=== PATIENT | female | born 1970 | race Caucasian/White ===

== ENCOUNTER 2016-10-03 17:38 | Day surgery (SDC) | payer SELFPAY ==
[~2016-10-03] VITALS: Ht 170.2 cm; Wt 75.3 kg
[2016-10-03 17:45] VITALS: BP 122/77
[2016-10-03] MEDS ORDERED: LIDOCAINE 2%HCL (LOCAL ANESTH.) INJ 20ML MDV ONE ×2 (18:11→18:43)
[2016-10-03] MEDS ORDERED: IOHEXOL 350 MG/ML 100ML IJ ONE (18:11)
[2016-10-03 18:25] LABS: Basophils # (auto) 0 uL; Basophils % (auto) 0.2 % (0.0-2.0); CONDITION Y; Eosinophils # (auto) 0 uL; Eosinophils % (auto) 0.1 % (0.0-7.0); Hematocrit 39.7 % (36.0-46.0); Hemoglobin 13.1 g/dL (12.2-16.2); Lymphocytes # (auto) 1.3 uL; Lymphocytes % (auto) 8.9 % (10.0-50.0); Mean Corpuscular Hemoglobin 29.7 pg (28.0-32.0); Mean Corpuscular Hgb Conc. 33.1 g/dL (32.0-36.0); Mean Corpuscular Volume 89.6 fL (80.0-100.0); Mean Platelet Volume 8.4 fL (7.4-10.4); Monocytes # (auto) 0.8 uL; Monocytes % (auto) 5.7 % (0.0-12.0); Neutrophils # (auto) 12.5 uL; Neutrophils % (auto) 85.1 % (37.0-80.0); Platelet Count (auto) 312 10^3/uL (140-450); Red Cell Distribution Width 13.8 % (11.6-16.0); White Blood Cell 14.7 10^3/uL (4.4-10.8)
[2016-10-03] MEDS ORDERED: fentaNYL CITRATE 100 MCG/2 ML VL ONE (18:36)
[2016-10-03] MEDS ORDERED: MIDAZOLAM HCL 1MG/1ML-2 ML VIAL ONE (18:37)
[2016-10-03 18:48] LABS: Albumin 3.8 g/dL (3.4-5.0); Alkaline Phosphatase 96 U/L (45-117); Anion Gap 8 (5-15); Aspartate Aminotransferase 81 U/L (15-37); BUN/Creatinine Ratio 14.3; Bilirubin, Total 0.2 mg/dL (0.2-1.0); Blood Urea Nitrogen 12 mg/dL (7-18); Calcium 8.9 mg/dL (8.5-10.1); Carbon Dioxide 25 mmol/L (21-32); Chloride 103 mmol/L (98-107); GFR African American 93 mL/min; GFR Non-African American 77 mL/min; Glucose 105 mg/dL (74-106); Magnesium 2.2 mg/dL (1.6-2.6); Potassium 3.6 mmol/L (3.5-5.1); Sodium 136 mmol/L (136-145); Total Protein 7.1 g/dL (6.4-8.2)
[2016-10-03 19:16] LABS: INR 0.93 (0.9-1.15); Partial Thromboplastin Time 23.5 sec (22.64-33.71); Prothrombin Time 10.1 sec (9.37-12.3)
[2016-10-03] MEDS ORDERED: HYDROcodone-ACET 5/325MG TAB ONE (19:26)
[2016-10-03] MEDS ORDERED: HYDROcodone-ACET 5/325MG TAB PO ONE (19:30)
[2016-10-03] MEDS ORDERED: LEVO500T21 PO (19:41)
== END 2016-10-03 19:54 | disposition home or self-care (01) ==
LOC: ER 17:41 → CATH 17:42 → ER 18:53 → CATH 19:54
PROVIDERS: ATTEND Internal Medicine Cardiovascular Disease
DX: R07.9 Chest pain, unspecified (principal); I26.99 Other pulmonary embolism without acute cor pulmonale; E03.9 Hypothyroidism, unspecified
CPT/HCPCS: 36415; 71010; 80053; 83735; 84443; 84484; 85025; 85379; 85610; 85730; 93005; 93456; C1760; C1894; J1644; J2250; J3010; J7030; Q9967; 99152

== ENCOUNTER → 2016-10-06 | Outpatient (CLI) | payer MEDICAID ==
[~2016-10-06] MED LIST: IOHEXOL 350 MG/ML 100ML IJ ONE; LEVO500T21 PO
[2016-10-06 14:20] VITALS: BP 107/76
[2016-10-06 15:50] VITALS: BP 127/72
== END | disposition home or self-care (01) ==
LOC: Rad HDHVI 14:38
PROVIDERS: ATTEND Internal Medicine Cardiovascular Disease
DX: K80.20 Calculus of gallbladder without cholecystitis without obstruction (principal); N83.12 Corpus luteum cyst of left ovary
CPT/HCPCS: 74177; 82565; G0463

== ENCOUNTER → 2023-03-17 | Outpatient (CLI) | payer BC ==
[~2023-03-17] MED LIST changes: -IOHEXOL 350 MG/ML 100ML IJ ONE; -LEVO500T21 PO; +LEVO500T31 PO
== END | disposition home or self-care (01) ==
LOC: Rad HDHVI 13:05
PROVIDERS: ATTEND Internal Medicine Cardiovascular Disease
DX: I10 Essential (primary) hypertension (principal)
CPT/HCPCS: 93306